=== PATIENT | female | born 1960 | race Caucasian/White ===

== ENCOUNTER 2016-11-27 20:49 | Emergency (ER) | payer OTHER ==
[~2016-11-27] VITALS: Ht 165.1 cm; Wt 80.4 kg
[~2016-11-27 20:49] MED LIST: BENI20TA25 PO; DIAZ10TA PO; FERR325T PO; PROC5TAB PO; PROM25TA5 PO; ZOFR4TAB3 SL
[2016-11-27 21:20] VITALS: BP 131/88; PULSE 82; RESP 18; TEMP 98.1; O2SAT 98
[2016-11-27 21:40] VITALS: BP 131/88; PULSE 82; RESP 18; TEMP 98.1; O2SAT 98
[2016-11-27] MEDS ORDERED: ONDANSETRON HCL 4 MG/2 ML VIAL IV PUSH ONE (22:00)
[2016-11-27] MEDS ORDERED: SODIUM CHLOR 0.9% 1000 ML INJ 1,000 ML IV ONE (22:00)
[2016-11-27] MEDS ORDERED: MORPHINE SULFATE 8 MG/ML INJ IV PUSH ONE (22:15)
--- NOTE | 2016-11-27 22:15 | PD ---
HPI Chief Complaint: GI Complaint Time Seen by Provider: 21:54 Travel History International Travel<30 days: No Contact w/Intl Traveler<30days: No Traveled to known affect area: No History of Present Illness HPI This 56-year-old female is complaining of vomiting and diarrhea. She says she' s been sick since around 3:00 this afternoon. She thinks she drank a shaking that didn't agree with. She started with diarrhea now is very nauseated. She has some mild crampy pain. She was here with similar pain in April and a CT scan was done which gave nonspecific findings. She says the pain began after she drank a shake. She drinks a lot of shakes and she makes with protein powder. PFSH Past Medical History Cardiovascular Problems: Yes Diminished Hearing: No Fibromyalgia: Yes Gastrointestinal Disorders: Yes ([place]) Hypertension: Yes Immunizations Current: Yes Tetanus Vaccination: Unknown Influenza Vaccination: No ?: Not Menopausal: Yes : 1 Para: 1 Past Surgical History Section: Yes Social History Alcohol Use: No Tobacco Use: No Substance Use: No Allergies-Medications (Allergen,Severity, Reaction): Coded Allergies: No Known Allergies (Verified , 11/27/16) Reported Meds & Prescriptions Reported Meds & Active Scripts Active Reported Aspir-Low (Aspirin) 81 Mg Tabdr 81 Prochlorperazine Maleate 10 Mg Tab 10 Mg PO DAILY PRN Vitamin D (Cholecalciferol) 5,000 Unit Tab 5,000 DAILY Omeprazole 20 Mg Tab 20 Mg PO DAILY Benicar (Olmesartan) 5 Mg Tab 10 Mg PO DAILY Diazepam 10 Mg Tab 10 Mg PO BID PRN Zoloft (Sertraline HCl) 50 Mg Tab 50 Mg PO DAILY Review of Systems General / Constitutional: No: Fever, Chills Eyes: No: Diploplia, Blurred Vision HENT: No: Headaches, Vertigo Cardiovascular: No: Chest Pain or Discomfort, Palpitations Respiratory: No: Cough, Shortness of Breath Gastrointestinal: Positive: Nausea, Vomiting, Diarrhea, Abdominal Pain Genitourinary: Positive: Nocturia Musculoskeletal: Positive: Myalgias, Arthralgias Physical Exam Narrative GENERAL: Well-developed female SKIN: Focused skin assessment warm/dry. HEAD: Atraumatic. Normocephalic. EYES: Pupils equal and round. No scleral icterus. No injection or drainage. ENT: No nasal bleeding or discharge. Mucous membranes pink and moist. NECK: Trachea midline. No JVD. CARDIOVASCULAR: Regular rate and rhythm. No murmur appreciated. RESPIRATORY: No accessory muscle use. Clear to auscultation. Breath sounds equal bilaterally. GASTROINTESTINAL: Abdomen soft, mild mid abdominal tenderness without guarding or rigidity. Bowel sounds active. Hepatic and splenic margins not palpable. MUSCULOSKELETAL: No obvious deformities. No clubbing. No cyanosis. No edema. NEUROLOGICAL: Awake and alert. No obvious cranial nerve deficits. Motor grossly within normal limits. Normal speech. PSYCHIATRIC: Appropriate mood and affect; insight and judgment normal. Data Data Last Documented VS Vital Signs Date Time Temp Pulse Resp B/P Pulse Ox O2 Delivery O2 Flow Rate FiO2 11/27/16 23:44 18 11/27/16 23:44 64 123/71 96 Nasal Cannula 2 11/27/16 21:40 98.1 Orders Complete Blood Count With Diff (11/27/16 21:54) Comprehensive Metabolic Panel (11/27/16 21:54) Sodium Chlor 0.9% 1000 Ml Inj (Ns 1000 M (11/27/16 22:00) Ondansetron Inj (Zofran Inj) (11/27/16 22:00) Morphine Inj (Morphine Inj) (11/27/16 22:15) Prochlorperazine Inj (Compazine Inj) (11/27/16 23:00) Diphenhydramine Inj (Benadryl Inj) (11/27/16 23:00) Hydromorphone Pf Inj (Dilaudid Pf Inj) (11/27/16 23:00) Labs Laboratory Tests Test 11/27/16 22:10 White Blood Count 12.0 TH/MM3 Red Blood Count 5.25 MIL/MM3 Hemoglobin 15.4 GM/DL Hematocrit 46.2 % Mean Corpuscular Volume 88.0 FL Mean Corpuscular Hemoglobin 29.3 PG Mean Corpuscular Hemoglobin 33.2 % Concent Red Cell Distribution Width 12.3 % Platelet Count 357 TH/MM3 Mean Platelet Volume 8.4 FL Neutrophils (%) (Auto) 84.5 % Lymphocytes (%) (Auto) 9.7 % Monocytes (%) (Auto) 5.0 % Eosinophils (%) (Auto) 0.3 % Basophils (%) (Auto) 0.5 % Neutrophils # (Auto) 10.1 TH/MM3 Lymphocytes # (Auto) 1.2 TH/MM3 Monocytes # (Auto) 0.6 TH/MM3 Eosinophils # (Auto) 0.0 TH/MM3 Basophils # (Auto) 0.1 TH/MM3 CBC Comment DIFF FINAL Differential Comment Sodium Level 143 MEQ/L Potassium Level 3.9 MEQ/L Chloride Level 105 MEQ/L Carbon Dioxide Level 27.7 MEQ/L Anion Gap 10 MEQ/L Blood Urea Nitrogen 17 MG/DL Creatinine 0.86 MG/DL Estimat Glomerular Filtration 68 ML/MIN Rate Random Glucose 144 MG/DL Calcium Level 9.0 MG/DL Total Bilirubin 0.3 MG/DL Aspartate Amino Transf 24 U/L (AST/SGOT) Alanine Aminotransferase 24 U/L (ALT/SGPT) Alkaline Phosphatase 92 U/L Total Protein 7.6 GM/DL Albumin 3.9 GM/DL [facility] Medical Decision Making Medical Screen Exam Complete: Yes Emergency Medical Condition: Yes Medical Record Reviewed: Yes Differential Diagnosis Differential includes gastroenteritis, adverse reaction, food poisoning Narrative Course She was given IV fluids and Zofran. Initially it was not a good response Zofran so she was also given Compazine and Benadryl seems to have helped. She is complaining of some mild dizziness. She was complaining of pain and has been medicated. I considered ordering a CT scan the patient says this pain is identical to the pain she had April and the scan and then was nonspecific. She does not wish to have a CT scan done now. She has been observed and her pain is improved. Diagnosis Primary Impression: Gastroenteritis Scripts Ondansetron Odt (Zofran Odt)4 Mg Tab4 Mg SL Q6HR PRN (Nausea/Vomiting) #12 TAB Ref 0 Prov:Gianni Bellamy MD 11/27/16 Disposition: DISCHARGE HOME Condition: Stable Gianni Bellamy MD Nov 27, 2016 22:14
[2016-11-27 22:30] LABS: AUTOMATED NEUTROPHIL # 10.1 TH/MM3 (1.8-7.7); BASOPHIL # 0.1 TH/MM3 (0-0.2); BASOPHIL % 0.5 % (0.0-2.0); CHLORIDE 105 MEQ/L (98-107); EOSINOPHIL % 0.3 % (0.0-4.0); HEMATOCRIT 46.2 % (35.0-46.0); LYMPH % 9.7 % (9.0-44.0); LYMPHOCYTE # 1.2 TH/MM3 (1.0-4.8); MEAN CORPUSCULAR HEMOGLOBIN 29.3 PG (27.0-34.0); MEAN CORPUSCULAR HGB CONC 33.2 % (32.0-36.0); NEUT % 84.5 % (16.0-70.0); PLATELET COUNT 357 TH/MM3 (150-450); POTASSIUM 3.9 MEQ/L (3.5-5.1); RED BLOOD COUNT 5.25 MIL/MM3 (4.00-5.30); RED CELL DISTRIBUTION WIDTH 12.3 % (11.6-17.2); SODIUM (NA) 143 MEQ/L (136-145)
[2016-11-27 22:33] LABS: ANION GAP 10 MEQ/L (5-15); BICARBONATE 27.7 MEQ/L (21.0-32.0); BLOOD UREA NITROGEN 17 MG/DL (7-18)
[2016-11-27 22:36] LABS: ALT (GPT) 24 U/L (10-53); AST (GOT) 24 U/L (15-37); GLOMERULAR FILTRATION RATE 68 ML/MIN (>89)
[2016-11-27 22:38] LABS: HEMO FLAGS DIFF FINAL; TOTAL BILIRUBIN ADULT 0.3 MG/DL (0.2-1.0)
[2016-11-27 22:39] LABS: ALKALINE PHOSPHATASE 92 U/L (45-117)
[2016-11-27 22:40] VITALS: BP 143/87; PULSE 95; RESP 18; O2SAT 95
[2016-11-27] MEDS ORDERED: ASPI81TA19 (22:56)
[2016-11-27] MEDS ORDERED: OMEP20TA PO (22:56)
[2016-11-27] MEDS ORDERED: DIAZ10TA PO (22:56)
[2016-11-27] MEDS ORDERED: PROC10TA PO (22:56)
[2016-11-27] MEDS ORDERED: ZOLO50TA PO (22:56)
[2016-11-27] MEDS ORDERED: CHOL50006 (22:56)
[2016-11-27] MEDS ORDERED: BENI5TAB4 PO (22:56)
[2016-11-27] MEDS ORDERED: PROCHLORPERAZINE INJ 10 MG/2 ML VIAL IV PUSH ONE (23:00)
[2016-11-27] MEDS ORDERED: diphenhydrAMINE HCL 50 MG/ML VIAL IV PUSH ONE (23:00)
[2016-11-27] MEDS ORDERED: HYDROmorphone HCL PF 1 MG/ML VIAL IV PUSH ONE (23:00)
[2016-11-27 23:44] VITALS: BP 123/71; PULSE 64; RESP 18; O2SAT 96
[2016-11-27] MEDS ORDERED: ZOFR4TAB3 SL (23:54)
== END 2016-11-28 00:50 | disposition home or self-care (01) ==
LOC: PHED 20:49
DX: K52.9 Noninfective gastroenteritis and colitis, unspecified (principal); M79.7 Fibromyalgia; K50.90 Crohn's disease, unspecified, without complications; I10 Essential (primary) hypertension
CPT/HCPCS: 80053; 85025; 96361; 96374; 96375; 99284; J0780; J1170; J1200; J2270; J2405; J7030